=== PATIENT | male | born 1950 | race African-American/Black ===

== ENCOUNTER 2018-10-14 16:38 | Emergency (ER) | payer MEDICARE, MEDICAID ==
[~2018-10-14] VITALS: Ht 172.7 cm; Wt 80.0 kg
[~2018-10-14 16:38] MED LIST: ALBU18HF2 IH; ALLO300T2 PO; AMOX-424 PO; ASA5EC PO; ATEN50TA PO; ATOR-2 PO; AZIT500T3 PO; LISI40TA4 PO; PHEN100C12 PO
[2018-10-14] MEDS ORDERED: LORAZEPAM 0.5MG TABLET PO ONE (17:45)
[2018-10-14] MEDS ORDERED: HYDROXYZINE 25MG TABLET PO ONE (17:45)
[2018-10-14] MEDS ORDERED: LORAZEPAM 0.5MG TABLET PO NR (18:00)
[2018-10-14] MEDS ORDERED: HYDROXYZINE 25MG TABLET PO NR (18:00)
[2018-10-14 19:21] LABS: BASOPHILS % 0.5 % (0.0-2.0); CHLORIDE 105 mEq/L (98-107); EOSINOPHILS % 2.7 % (0.0-5.0); HEMATOCRIT. 32.4 % (42.0-52.0); HEMOGLOBIN. 11.3 g/dL (14.0-18.0); LYMPHOCYTES % 18.5 % (20.0-50.0); MEAN CORPUSCULAR HEMOGLOBIN 28.5 pg (28.0-32.0); MEAN CORPUSCULAR VOLUME 81.7 fL (80.0-94.0); MEAN PLATELET VOLUME 8.8 fl (7.4-10.4); MONOCYTES % 7.2 % (2.0-8.0); NEUTROPHILS % 71.1 % (40.0-76.0); PLATELET 217 x1000/uL (130-400); RED BLOOD CELL COUNT 3.97 mill/uL (4.7-6.1); RED CELL DISTRIBUTION WIDTH 16.1 % (11.6-14.6)
[2018-10-14 21:41] VITALS: BP 149/71
== END 2018-10-14 21:47 | disposition home or self-care (01) ==
LOC: ER 16:38
DX: F41.9 Anxiety disorder, unspecified (principal); E11.9 Type 2 diabetes mellitus without complications; I10 Essential (primary) hypertension; E78.00 Pure hypercholesterolemia, unspecified; Z86.73 Personal history of transient ischemic attack (TIA), and cerebral infarction without residual deficits; Z87.01 Personal history of pneumonia (recurrent); Z79.899 Other long term (current) drug therapy
CPT/HCPCS: 36415; 84484; 93005; 99284

== ENCOUNTER 2018-11-04 13:49 | Inpatient (IN) | payer MEDICARE, MEDICAID ==
[~2018-11-04] VITALS: Ht 177.8 cm; Wt 107.0 kg
[2018-11-04] MEDS ORDERED: SODIUM CHLORIDE 0.9% 1,000 ML IV ONE (13:56)
[2018-11-04 14:41] LABS: BASOPHILS % 0.3 % (0.0-2.0); EOSINOPHILS % 2.2 % (0.0-5.0); HEMATOCRIT. 30.3 % (42.0-52.0); HEMOGLOBIN. 10.6 g/dL (14.0-18.0); LYMPHOCYTES % 14.7 % (20.0-50.0); MEAN CORPUSCULAR HEMOGLOBIN 28.4 pg (28.0-32.0); MEAN CORPUSCULAR VOLUME 81.3 fL (80.0-94.0); MEAN PLATELET VOLUME 8.1 fl (7.4-10.4); NEUTROPHILS % 74.8 % (40.0-76.0); PLATELET 272 x1000/uL (130-400); RED BLOOD CELL COUNT 3.73 mill/uL (4.7-6.1); RED CELL DISTRIBUTION WIDTH 15.5 % (11.6-14.6)
[2018-11-04 14:47] LABS: CHLORIDE 106 mEq/L (98-107)
[2018-11-04 14:48] LABS: INR 1.1; PROTHROMBIN TIME 11.3 sec (9.6-11.0)
[2018-11-04 14:51] LABS: ETHANOL BLOOD < 10 mg/dL
[2018-11-04 14:56] LABS: CREATINE KINASE 198 IU/L (39-308)
[2018-11-04 14:58] LABS: CREATINE KINASE MB FRACTION 3.5 ng/mL (0.5-3.6)
[2018-11-04] MEDS ORDERED: PHENYTOIN SODIUM 1,000 MG in SODIUM CHLORIDE 0.9% 100 ML IV ONE (15:45)
[2018-11-04] MEDS ORDERED: LEVOFLOXACIN 500MG PREMIX 100 ML IV ONE (16:15)
[2018-11-04] MEDS ORDERED: PIPERACILLIN/TAZ 3.375G PREMIX 50 ML IV ONE (16:15)
[2018-11-04] MEDS ORDERED: LORAZEPAM 2MG/ML CPJ IM PRN ×2 (17:15→19:30)
[2018-11-04] MEDS ORDERED: ACETAMINOPHEN 325MG TABLET PO PRN (17:15)
[2018-11-04] MEDS ORDERED: POTASSIUM CHLORIDE 20MEQ TABLET SR PO ONE (17:15)
[2018-11-04] MEDS ORDERED: IPRATROPIUM/ALBUTEROL 0.5-3(2.5)MG/3ML NEB HHN PRN (17:15)
[2018-11-04] MEDS ORDERED: CLONIDINE 0.1MG TABLET PO PRN (17:15)
[2018-11-04] MEDS ORDERED: LEVETIRACETAM 500 MG in SODIUM CHLORIDE 0.9% 100 ML IV SCH ×2 (17:15→21:00)
[2018-11-04] MEDS ORDERED: CEFEPIME 1,000 MG in DEXTROSE 5% WATER 50 ML IV SCH (17:15)
[2018-11-04] MEDS ORDERED: METRONIDAZOLE 500 MG PREMIX 100 ML IV SCH (17:15)
[2018-11-04 17:50] LABS: CLARITY URINE CLEAR (CLEAR); COLOR URINE YELLOW (YELLOW); KETONES URINE NEGATIVE (NEGATIVE); LEUKOCYTE ESTERASE URINE NEGATIVE (NEGATIVE); NITRITE URINE NEGATIVE (NEGATIVE); OCCULT BLOOD URINE NEGATIVE (NEGATIVE); PH URINE 6.5 (4.5-8.0); PROTEIN URINE 1+ (NEGATIVE); SPECIFIC GRAVITY URINE 1.014 (1.005-1.030)
[2018-11-04 18:06] LABS: *BENZODIAZEPINES SCREEN URINE NEGATIVE (NEGATIVE)
[2018-11-04 18:07] LABS: *AMPHETAMINES SCREEN URINE NEGATIVE (NEGATIVE); *COCAINE SCREEN URINE NEGATIVE (NEGATIVE); CANNABINOID URINE SCREEN NEGATIVE (NEGATIVE); METHADONE URINE SCREEN NEGATIVE (NEGATIVE); OPIATES URINE SCREEN PRESUMTIVE POSITIVE (NEGATIVE); PHENCYCLIDINE URINE SCREEN NEGATIVE (NEGATIVE)
[2018-11-04 18:08] LABS: *BARBITURATES SCREEN URINE NEGATIVE (NEGATIVE)
[2018-11-04] MEDS ORDERED: POTASSIUM CHLORIDE 20MEQ TABLET SR PO NR (19:30)
[2018-11-04] MEDS: LORAZEPAM 2MG/ML CPJ IV PRN (19:32)
[2018-11-04 20:02] VITALS: BP 167/94
[2018-11-04] MEDS: PHENYTOIN SODIUM EXTENDED 100MG CAPSULE PO SCH (21:42)
[2018-11-04] MEDS: METRONIDAZOLE 500 MG PREMIX 100 ML IV SCH (21:42)
[2018-11-04] MEDS: CEFEPIME 1,000 MG in DEXTROSE 5% WATER 50 ML IV SCH (21:52)
[2018-11-04] MEDS ORDERED: PHENYTOIN SODIUM EXTENDED 100MG CAPSULE PO SCH (22:00)
[2018-11-04 23:53] VITALS: BP 167/94
[2018-11-04 23:59] VITALS: BP 97/57
[2018-11-05 04:01] VITALS: BP 110/60
[2018-11-05] MEDS: METRONIDAZOLE 500 MG PREMIX 100 ML IV SCH ×3 (05:13→22:19)
[2018-11-05] MEDS: PHENYTOIN SODIUM EXTENDED 100MG CAPSULE PO SCH ×3 (05:14→21:34)
[2018-11-05 08:00] VITALS: BP 134/82
[2018-11-05] MEDS: AMLODIPINE 10MG TABLET PO SCH (09:18)
[2018-11-05] MEDS: CEFEPIME 1,000 MG in DEXTROSE 5% WATER 50 ML IV SCH ×2 (09:18→22:19)
[2018-11-05] MEDS: LEVETIRACETAM 500MG in SODIUM CHLORIDE 0.9% 100ML IV SCH ×2 (10:28→21:34)
[2018-11-05 12:00] VITALS: BP 103/61
[2018-11-05] MEDS ORDERED: POTASSIUM CHLORIDE 20MEQ TABLET SR PO NR (14:15)
[2018-11-05] MEDS: MORPHINE SULFATE 2 MG/ML CPJ (NOT FOR IM USE) IV PRN ×2 (14:25→22:46)
[2018-11-05 16:00] VITALS: BP 102/65
[2018-11-05 20:00] VITALS: BP 101/58
[2018-11-05 21:36] LABS: CHLORIDE 107 mEq/L (98-107)
[2018-11-05] MEDS: LORAZEPAM 2MG/ML CPJ IV PRN (22:21)
[2018-11-06] VITALS: BP 118/73
[2018-11-06 00:25] LABS: BASOPHILS % 0.5 % (0.0-2.0); EOSINOPHILS % 2.8 % (0.0-5.0); HEMATOCRIT. 26.1 % (42.0-52.0); HEMOGLOBIN. 9.4 g/dL (14.0-18.0); LYMPHOCYTES % 26.3 % (20.0-50.0); MEAN CORPUSCULAR VOLUME 80.9 fL (80.0-94.0); MEAN PLATELET VOLUME 8.9 fl (7.4-10.4); MONOCYTES % 8.4 % (2.0-8.0); PLATELET 254 x1000/uL (130-400); RED BLOOD CELL COUNT 3.23 mill/uL (4.7-6.1); RED CELL DISTRIBUTION WIDTH 15.9 % (11.6-14.6)
[2018-11-06 04:00] VITALS: BP 124/73
[2018-11-06] MEDS: PHENYTOIN SODIUM EXTENDED 100MG CAPSULE PO SCH ×3 (05:20→21:00)
[2018-11-06] MEDS: METRONIDAZOLE 500 MG PREMIX 100 ML IV SCH (05:20)
[2018-11-06 08:00] VITALS: BP 113/73
[2018-11-06 08:51] LABS: BASOPHILS % 0.5 % (0.0-2.0); EOSINOPHILS % 3.3 % (0.0-5.0); HEMATOCRIT. 26.6 % (42.0-52.0); HEMOGLOBIN. 9.3 g/dL (14.0-18.0); LYMPHOCYTES % 20.9 % (20.0-50.0); MEAN CORPUSCULAR HEMOGLOBIN 28.8 pg (28.0-32.0); MEAN CORPUSCULAR VOLUME 82.5 fL (80.0-94.0); NEUTROPHILS % 66.3 % (40.0-76.0); PLATELET 242 x1000/uL (130-400); RED BLOOD CELL COUNT 3.23 mill/uL (4.7-6.1); RED CELL DISTRIBUTION WIDTH 15.9 % (11.6-14.6)
[2018-11-06] MEDS: AMLODIPINE 10MG TABLET PO SCH ×2 (09:14→09:41)
[2018-11-06] MEDS: LEVETIRACETAM 500MG TABLET PO SCH ×2 (09:18→20:46)
[2018-11-06 09:56] LABS: CHLORIDE 106 mEq/L (98-107)
[2018-11-06 12:00] VITALS: BP 110/72
[2018-11-06] MEDS: CEFEPIME 1,000 MG in DEXTROSE 5% WATER 50 ML IV SCH ×2 (12:19→23:31)
[2018-11-06] MEDS: MORPHINE SULFATE 2 MG/ML CPJ (NOT FOR IM USE) IV PRN (14:37)
[2018-11-06] MEDS: BACLOFEN 10MG TABLET PO SCH ×2 (15:52→17:00)
[2018-11-06 16:00] VITALS: BP 128/80
[2018-11-06 20:00] VITALS: BP 115/70
[2018-11-06] MEDS: HYDROCODONE/ACETAMINOPHEN 5/325MG TABLET PO PRN (20:46)
[2018-11-06] MEDS: METRONIDAZOLE 500MG TABLET PO SCH (21:00)
[2018-11-07] VITALS: BP 119/80
[2018-11-07 04:00] VITALS: BP 139/83
[2018-11-07] MEDS: PHENYTOIN SODIUM EXTENDED 100MG CAPSULE PO SCH (05:32)
[2018-11-07] MEDS: METRONIDAZOLE 500MG TABLET PO SCH (05:32)
[2018-11-07] MEDS: HYDROCODONE/ACETAMINOPHEN 5/325MG TABLET PO PRN (05:36)
[2018-11-07 08:00] VITALS: BP 127/75
[2018-11-07] MEDS: BACLOFEN 10MG TABLET PO SCH (10:10)
[2018-11-07] MEDS: LEVETIRACETAM 500MG TABLET PO SCH (10:10)
[2018-11-07] MEDS: AMLODIPINE 10MG TABLET PO SCH (10:11)
[2018-11-07] MEDS: CEFEPIME 1,000 MG in DEXTROSE 5% WATER 50 ML IV SCH (10:26)
[2018-11-07 12:57] VITALS: BP 122/72
== END 2018-11-07 13:55 | disposition home or self-care (01) | DRG 100 ==
LOC: ER 13:49 → EDBEDREQ 16:48 → ENRESERV 17:11 → ER 18:30 → 6WST 19:09 → 5WST 11-06 17:33
PROVIDERS: ADMIT Internal Medicine; ATTEND Internal Medicine
DX: G40.909 Epilepsy, unspecified, not intractable, without status epilepticus (principal); J69.0 Pneumonitis due to inhalation of food and vomit; G93.41 Metabolic encephalopathy; E87.6 Hypokalemia; D64.9 Anemia, unspecified; E66.9 Obesity, unspecified; N18.9 Chronic kidney disease, unspecified; I13.10 Hypertensive heart and chronic kidney disease without heart failure, with stage 1 through stage 4 chronic kidney disease, or unspecified chronic kidney disease; E11.22 Type 2 diabetes mellitus with diabetic chronic kidney disease; E78.5 Hyperlipidemia, unspecified; G89.4 Chronic pain syndrome; G93.89 Other specified disorders of brain; M10.9 Gout, unspecified; M47.897 Other spondylosis, lumbosacral region; I69.320 Aphasia following cerebral infarction; Z68.33 Body mass index [BMI] 33.0-33.9, adult; Z79.82 Long term (current) use of aspirin; Z79.899 Other long term (current) drug therapy
CPT/HCPCS: 36415; 71045; 72110; 80048; 80185; 80305; 80320; 82140; 82550; 82553; 83880; 84153; 84484; 93970; 97162; 99285; J0692; J1165; J1953; J1956; J2060; J2270; J2543; J3490; J7030; J7040; J7050; J7060; G0103; G0480

== ENCOUNTER 2020-04-14 14:39 | Emergency (ER) | payer MEDICARE, MEDICAID ==
[~2020-04-14] VITALS: Ht 175.3 cm; Wt 80.0 kg
[~2020-04-14 14:39] MED LIST changes: -AMOX-424 PO; -ASA5EC PO; +ASPI325T85 PO; -AZIT500T3 PO
[2020-04-14 14:43] VITALS: BP 148/81
[2020-04-14] MEDS ORDERED: ACETAMINOPHEN 500MG TABLET PO ONE (16:30)
== END 2020-04-14 18:56 | disposition home or self-care (01) ==
LOC: ER 14:39
DX: M25.561 Pain in right knee (principal); Z86.73 Personal history of transient ischemic attack (TIA), and cerebral infarction without residual deficits; Z79.899 Other long term (current) drug therapy; Z79.82 Long term (current) use of aspirin
CPT/HCPCS: 73562; 99283

== ENCOUNTER 2020-04-20 19:15 | Emergency (ER) | payer MEDICARE, MEDICAID ==
[~2020-04-20] VITALS: Ht 165.1 cm; Wt 91.0 kg
[2020-04-20] MEDS ORDERED: DIPHENHYDRAMINE 25MG CAPSULE PO ONE (20:00)
[2020-04-20 20:58] VITALS: BP 141/77
== END 2020-04-20 21:04 | disposition home or self-care (01) ==
LOC: ER 19:15
DX: L29.9 Pruritus, unspecified (principal); R56.9 Unspecified convulsions; J45.909 Unspecified asthma, uncomplicated; Z79.82 Long term (current) use of aspirin; Z86.73 Personal history of transient ischemic attack (TIA), and cerebral infarction without residual deficits
CPT/HCPCS: 99283; Q0163